=== PATIENT | male | born 1990 | race Caucasian/White ===

== ENCOUNTER 2016-07-12 07:18 | Emergency (ER) | payer OTHER ==
[2016-07-12 08:35] LABS: RED BLOOD COUNT 5.04 M/UL (4.20-5.50); WHITE BLOOD COUNT 11.7 K/UL (4.5-11.0)
[2016-07-12 08:57] LABS: BUN/CREATININE RATIO 14 (0-10)
== END 2016-07-12 13:00 | disposition home or self-care (01) ==
LOC: ER1 07:18
PROVIDERS: Emergency Medicine
DX: R51 Headache (principal); R31.9 Hematuria, unspecified; I10 Essential (primary) hypertension; R42 Dizziness and giddiness; R06.02 Shortness of breath; R11.0 Nausea
CPT/HCPCS: 36415; 70450; 71010; 80053; 81001; 82550; 82553; 83690; 83874; 84484; 85025; 85379; 87040; 93005; 96374; 99285; J2405; J7030

== ENCOUNTER 2016-07-27 01:28 | Emergency (ER) | payer OTHER | END 2016-07-27 03:50 | disposition left against medical advice (07) | LOC: ER1 01:28 | DX: R10.32 Left lower quadrant pain (principal); N50.819 Testicular pain, unspecified; Z87.442 Personal history of urinary calculi | CPT/HCPCS: 99283 ==

== ENCOUNTER → 2020-07-25 | Outpatient (CLI) | payer OTHER ==
[~2020-07-25] MED LIST: ASPIRIN CHEWABL81 MG PO
== END ==
LOC: KOH-I 13:42
DX: M79.671 Pain in right foot (principal); M19.071 Primary osteoarthritis, right ankle and foot
CPT/HCPCS: 73630

== ENCOUNTER → 2020-08-22 | Outpatient (CLI) | payer OTHER | LOC: KOH-I 09:44 | DX: M25.571 Pain in right ankle and joints of right foot (principal); M79.671 Pain in right foot | CPT/HCPCS: 73610; 73630 ==

== ENCOUNTER → 2020-12-26 | Outpatient (CLI) | payer OTHER | LOC: US 11:00 → EXRD 14:30 | DX: M54.50 Low back pain, unspecified (principal); R22.2 Localized swelling, mass and lump, trunk | CPT/HCPCS: 76705; 76870 ==